=== PATIENT | female | born 1945 | race Caucasian/White ===

== ENCOUNTER 2019-02-10 12:51 | Inpatient (IN) | payer OTHER ==
[~2019-02-10] VITALS: Ht 172.7 cm; Wt 76.7 kg
[2019-02-10 12:51] VITALS: Ht 172.7 cm; Wt 76.7 kg
[2019-02-10 13:44] LABS: BASOPHIL % 0.3 % (0-2); PLATELET COUNT 175 x10^3mcL (130-400)
[2019-02-10 14:03] LABS: CHLORIDE SERUM 102 mmol/L (98-107); CREATININE SERUM 0.8 mg/dL (0.6-1.0); GLUCOSE SERUM 185 mg/dL (74-106); POTASSIUM SERUM 3.5 mmol/L (3.5-5.1); SODIUM SERUM 138 mmol/L (136-145)
[2019-02-10 14:07] LABS: ALBUMIN 4.2 g/dL (3.4-5.0); ALKALINE PHOSPHATASE 114 U/L (46-116); AST/SGOT 17 U/L (15-37); BILIRUBIN TOTAL 0.46 mg/dL (0.20-1.00); LIPASE 107 IU/L (73-393); TOTAL PROTEIN, SERUM 7.2 g/dL (6.4-8.2)
[2019-02-10 14:26] LABS: ALT/SGPT 29 U/L (14-59)
[2019-02-10 14:36] LABS: microscopic required? YES; urine erythrocyte 3+ (NEGATIVE)
[2019-02-10] MEDS ORDERED: HYDROCHLOROTHIA50 MG (18:08)
[2019-02-10] MEDS ORDERED: ZESTRIL5 MG (18:09)
[2019-02-10] MEDS ORDERED: KLOR-CON M2020 MEQ (18:09)
[2019-02-10] MEDS ORDERED: XANAX0.5 MG (18:09)
[2019-02-10 19:33] VITALS: BP 147/81
[2019-02-10 20:53] VITALS: BP 148/83
[2019-02-11 06:20] VITALS: BP 134/72
[2019-02-11 06:36] LABS: CALCIUM 8.8 mg/dL (8.5-10.1); CARBON DIOXIDE 29.4 mmol/L (21-32); CHLORIDE SERUM 102 mmol/L (98-107); CREATININE SERUM 1.2 mg/dL (0.6-1.0); GLUCOSE SERUM 116 mg/dL (74-106); POTASSIUM SERUM 3.5 mmol/L (3.5-5.1); SODIUM SERUM 139 mmol/L (136-145)
[2019-02-11 06:40] LABS: BASOPHIL % 0.3 % (0-2); PLATELET COUNT 152 x10^3mcL (130-400); RED CELL DISTRIBUTION WIDTH 13.1 % (11.5-14.5)
[2019-02-11 08:07] VITALS: BP 127/71
[2019-02-11 12:21] VITALS: BP 150/65
[2019-02-11 16:29] VITALS: BP 145/68
[2019-02-11 20:24] VITALS: BP 128/60
[2019-02-12 05:42] VITALS: BP 148/71
[2019-02-12 07:51] VITALS: BP 142/64
[2019-02-12 08:52] LABS: BASOPHIL % 0.3 % (0-2)
[2019-02-12 08:54] LABS: CALCIUM 8.3 mg/dL (8.5-10.1); CARBON DIOXIDE 29.3 mmol/L (21-32); CHLORIDE SERUM 104 mmol/L (98-107); CREATININE SERUM 1.3 mg/dL (0.6-1.0); GLUCOSE SERUM 201 mg/dL (74-106); POTASSIUM SERUM 4.1 mmol/L (3.5-5.1); SODIUM SERUM 139 mmol/L (136-145)
[2019-02-12 09:08] LABS: PLATELET COUNT 128 x10^3mcL (130-400)
[2019-02-12 12:07] VITALS: BP 124/59
[2019-02-12 15:52] VITALS: BP 143/76
[2019-02-12 20:36] VITALS: BP 143/60
[2019-02-13 05:09] VITALS: BP 146/77
[2019-02-13 07:20] LABS: BASOPHIL % 0.4 % (0-2); RED CELL DISTRIBUTION WIDTH 13.2 % (11.5-14.5)
[2019-02-13 07:22] LABS: PLATELET COUNT 116 x10^3mcL (130-400)
[2019-02-13 07:28] LABS: CALCIUM 8.6 mg/dL (8.5-10.1); CARBON DIOXIDE 27.1 mmol/L (21-32); CHLORIDE SERUM 106 mmol/L (98-107); CREATININE SERUM 1.2 mg/dL (0.6-1.0); GLUCOSE SERUM 124 mg/dL (74-106); POTASSIUM SERUM 3.9 mmol/L (3.5-5.1); SODIUM SERUM 139 mmol/L (136-145)
[2019-02-13 17:22] VITALS: BP 147/82
[2019-02-13 21:09] VITALS: BP 152/80
[2019-02-14 06:06] VITALS: BP 160/79
[2019-02-14 09:38] VITALS: BP 168/91
[2019-02-14 13:27] VITALS: BP 168/91
== END 2019-02-14 17:37 | disposition home or self-care (01) | DRG 693 ==
LOC: ED 12:51 → DU 18:00 → MU 02-13 15:16
PROVIDERS: Emergency Medicine; ADMIT Internal Medicine
DX: N20.0 Calculus of kidney (principal); N17.0 Acute kidney failure with tubular necrosis; N13.30 Unspecified hydronephrosis; N39.0 Urinary tract infection, site not specified; I10 Essential (primary) hypertension; F41.9 Anxiety disorder, unspecified; E11.9 Type 2 diabetes mellitus without complications; Z68.36 Body mass index [BMI] 36.0-36.9, adult
CPT/HCPCS: 82962; J1885; J2270; J2405; J2550; J2765; J7030